=== PATIENT | female | born 1950 | race Caucasian/White ===

== ENCOUNTER 2022-02-05 16:41 | Emergency (ER) | payer OTHER ==
[~2022-02-05] VITALS: Ht 165.1 cm; Wt 90.6 kg
[2022-02-05 18:40] VITALS: BP 201/93
[2022-02-05] MEDS ORDERED: tranexamic acid 100mg/ml inj. TP ONE (18:50)
[2022-02-05] MEDS ORDERED: oxymetazoline 15 ML nasal spray NS ONE (18:50)
== END 2022-02-05 19:51 | disposition home or self-care (01) ==
LOC: ER 16:42
DX: S02.2XXA Fracture of nasal bones, initial encounter for closed fracture (principal); R04.0 Epistaxis; W01.0XXA Fall on same level from slipping, tripping and stumbling without subsequent striking against object, initial encounter; Y93.01 Activity, walking, marching and hiking; Y92.89 Other specified places as the place of occurrence of the external cause; Y99.8 Other external cause status
CPT/HCPCS: 70450; 70486; 99284